=== PATIENT | female | born 1980 | race African-American/Black ===

== ENCOUNTER 2017-08-08 06:59 | Emergency (ER) | payer BC ==
[2017-08-08] MEDS ORDERED: Ibuprofen 800 MG TAB ONE (07:25)
--- NOTE | 2017-08-08 08:43 | RAD ---
LEFT FOOT 3 VIEWS: Date: 08/08/17 HISTORY: Left foot injury. FINDINGS: Calcaneal spurs are present. 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 There are no sig ns of fracture or dislocation. IMPRESSION: No signs of fracture. POS: [facility]
--- NOTE | 2017-08-08 08:51 | RAD ---
LEFT ANKLE 3 VIEWS: Date: 08/08/17 HISTORY: Ankle injury. FINDINGS: There are some arthritic changes of the lateral margin of the talus. There is also osteophytic change of the talonavicular joint. There are no signs of fracture, dislocation, or joint effusion. IMPRESSION: No evidence of fracture. POS: [facility]
--- NOTE | 2017-08-08 08:59 | RAD ---
LEFT TIBIA AND FIBULA 2 VIEWS: Date: 08/08/17 HISTORY: Left knee injury. FINDINGS: There is a nondisplaced fibular neck fracture present. I do not have complete visualization of the pr oximal tibia on both views. No additional fractures are seen. IMPRESSION: Proximal fibular neck and head fracture. A knee film may be helpful to evaluate for additional abnorm ality in this area. POS: [facility]
== END 2017-08-08 09:07 | disposition home or self-care (01) ==
LOC: NAV ERS 06:59
DX: S82.832A Other fracture of upper and lower end of left fibula, initial encounter for closed fracture (principal); V09.9XXA Pedestrian injured in unspecified transport accident, initial encounter